=== PATIENT | female | born 1955 | race Caucasian/White ===

== ENCOUNTER 2020-04-27 12:58 | Emergency (ER) | payer MEDICARE, SELFPAY ==
[2020-04-27 13:21] VITALS: BP 154/77; PULSE 85; RESP 18; TEMP 36.8; O2SAT 96; BMI 26.6
--- NOTE | 2020-04-27 14:33 | XR_ITS ---
EXAMINATION: LEFT TIB-FIB 2 VIEWS LEFT KNEE 3 VIEWS LEFT FEMUR 5 VIEWS RIGHT KNEE 4 VIEWS CLINICAL INFORMATION: Pain status post injury COMPARISON: None TECHNIQUE: As above FINDINGS: Left tib-fib and left knee: No deformity. Moderate degenerative joint space narrowing medial femoral tibial joint compartment with marginal osteophytes. Tibial plateaus grossly intact. Trace joint effusion. Limited positioning. Left femur: No deformity. Femoral head intact. No dislocation. Right knee: Mild joint compartment narrowing medial tibial femoral joint compartment. No effusion. No fracture. XR/XR tibia fibula LT 2V IMPRESSION: No fracture as above. Chronic changes consistent with osteoarthritis.
--- NOTE | 2020-04-27 14:33 | ED.LOWEXIN ---
HPI - Extremity Injury (Lower) General Chief Complaint: Extremity Injury, Lower Stated Complaint: fall - lt leg injured Time Seen by Provider: 04/27/20 14:33 History of Present Illness HPI Narrative: Patient complains of left knee and thigh pain after a fall 3 steps off a step ladder twisting her knee, no other injury no head injury no neck injury no back injury, no loss of consciousness no numbness no weakness no tingling Related Data Previous Rx's Medication Instructions Recorded hydrocodone-acetaminophen 1 tab PO Q6H PRN 3 Days #9 tab 04/27/20 ibuprofen 600 mg PO Q6H PRN #20 tab 04/27/20 Allergies Allergy/AdvReac Type Severity Reaction Status Date / Time propoxyphene [From DARVON] Allergy Unknown UNKNOWN Unverified 01/10/20 15:52 AGE 15 BROUGHT TO HOSPITAL Sulfa (Sulfonamide Allergy Unknown HIVES Unverified 01/10/20 15:52 Antibiotics) [SULFA (SULFONAMIDE ANTIBIOTICS)] sulfur Allergy Unknown Verified 12/18/18 00:00 Review of Systems Review of Systems: Positive for left knee and thigh pain Negatives are no dizziness no weakness no headache no loss of consciousness no vision changes no neck pain no numbness no weakness no paresthesias no chest pain no shortness of breath no palpitations no abdominal pain PMFSH Past Medical History Source: nursing notes reviewed Medical History (Updated 04/27/20 @ 16:43 by ALEN Menchaca) Cholecystectomy planned High cholesterol HTN (hypertension) Hypothyroid Social History Social History Advance Directives: No Advance Directives Information Provided: Yes Physical Exam Vital Signs: Vital Signs: Last Vital Signs Temp 98.2 F 04/27/20 13:21 Pulse 85 04/27/20 13:21 Resp 18 04/27/20 13:21 BP 154/77 H 04/27/20 13:21 Pulse Ox 96 04/27/20 13:21 Body Mass Index 26.6 Patient is A&O x3, cooperative, no acute distress Head is normocephalic atraumatic Neck is supple and nontender The chest is nontender and clear to auscultation bilaterally The abdomen is soft nontender Exam of the pelvis there was no pain with pressure on the pelvic bones Extremities the hips were nontender and had a full range of motion bilaterally The left thigh had mild tenderness superior to the patella, distal femur there was no bruising or deformities or focal bony tenderness, no posterior tenderness, the left knee was not swollen but had significant lateral tenderness, no effusion no deformity, flexes to about 90 degrees extends to 180, patient can do a straight leg lift with no defects felt in quadriceps or patellar tendons, no obvious ligamentous laxity, skin intact There was very mild tenderness to the anterior proximal tibia no calf tenderness no calf swelling and neurovascular was intact distal Neuro no focal deficits Course Course Course Narrative: X-rays of lower leg knee and thigh were negative for acute fracture but did show some arthritic change As patient had difficulty ambulating she was given a knee immobilizer and told to use it only if needed and that there is risk of loss of range of motion if she overuses it She is advised to Follow with Orthopedics for further evaluation for injured knee Discharge Plan Discharge Clinical Impression: Knee sprain Qualifiers: Encounter type: initial encounter Involved ligament of knee: unspecified ligament Laterality: left Qualified Code(s): S83.92XA - Sprain of unspecified site of left knee, initial encounter Patient Disposition: Home, Self-Care Additional Instructions: X-rays did not show any broken bone You may have sprained her knee so we advise follow-up with safety compliance specialist for further evaluation Return any concerns Prescriptions: New ibuprofen 600 mg tablet 600 mg PO Q6H PRN (Reason: pain) Qty: 20 RF: 0 hydrocodone-acetaminophen 5-325 mg tablet 1 tab PO Q6H PRN (Reason: pain) 3 Days Qty: 9 RF: 0 Referrals: Omar oWlf MD [Physician] - 2 days (Left knee sprain) Stand Alone Forms: Work/School Release
--- NOTE | 2020-04-27 14:34 | XR_ITS ---
EXAMINATION: LEFT TIB-FIB 2 VIEWS LEFT KNEE 3 VIEWS LEFT FEMUR 5 VIEWS RIGHT KNEE 4 VIEWS CLINICAL INFORMATION: Pain status post injury COMPARISON: None TECHNIQUE: As above FINDINGS: Left tib-fib and left knee: No deformity. Moderate degenerative joint space narrowing medial femoral tibial joint compartment with marginal osteophytes. Tibial plateaus grossly intact. Trace joint effusion. Limited positioning. Left femur: No deformity. Femoral head intact. No dislocation. Right knee: Mild joint compartment narrowing medial tibial femoral joint compartment. No effusion. No fracture. XR/XR knee RT 4V IMPRESSION: No fracture as above. Chronic changes consistent with osteoarthritis.
--- NOTE | 2020-04-27 14:34 | XR_ITS ---
EXAMINATION: LEFT TIB-FIB 2 VIEWS LEFT KNEE 3 VIEWS LEFT FEMUR 5 VIEWS RIGHT KNEE 4 VIEWS CLINICAL INFORMATION: Pain status post injury COMPARISON: None TECHNIQUE: As above FINDINGS: Left tib-fib and left knee: No deformity. Moderate degenerative joint space narrowing medial femoral tibial joint compartment with marginal osteophytes. Tibial plateaus grossly intact. Trace joint effusion. Limited positioning. Left femur: No deformity. Femoral head intact. No dislocation. Right knee: Mild joint compartment narrowing medial tibial femoral joint compartment. No effusion. No fracture. XR/XR knee LT 4V IMPRESSION: No fracture as above. Chronic changes consistent with osteoarthritis.
--- NOTE | 2020-04-27 14:34 | XR_ITS ---
EXAMINATION: LEFT TIB-FIB 2 VIEWS LEFT KNEE 3 VIEWS LEFT FEMUR 5 VIEWS RIGHT KNEE 4 VIEWS CLINICAL INFORMATION: Pain status post injury COMPARISON: None TECHNIQUE: As above FINDINGS: Left tib-fib and left knee: No deformity. Moderate degenerative joint space narrowing medial femoral tibial joint compartment with marginal osteophytes. Tibial plateaus grossly intact. Trace joint effusion. Limited positioning. Left femur: No deformity. Femoral head intact. No dislocation. Right knee: Mild joint compartment narrowing medial tibial femoral joint compartment. No effusion. No fracture. XR/XR femur LT 2V IMPRESSION: No fracture as above. Chronic changes consistent with osteoarthritis.
== END 2020-04-27 17:29 | disposition home or self-care (01) ==
PROVIDERS: Emergency Provider Emergency Medicine; PCP Internal Medicine
DX: S83.92XA Sprain of unspecified site of left knee, initial encounter (principal); M25.562 Pain in left knee; W10.9XXA Fall (on) (from) unspecified stairs and steps, initial encounter; Y93.9 Activity, unspecified; Y92.009 Unspecified place in unspecified non-institutional (private) residence as the place of occurrence of the external cause; Y99.9 Unspecified external cause status
CPT/HCPCS: 73552; 73564; 73590; 99283; 99284

== ENCOUNTER → 2020-06-02 13:53 | Outpatient (BNVA) | payer OTHER, MEDICARE, SELFPAY | PROVIDERS: Visit Provider Physician Assistant | DX: Z13.89 Encounter for screening for other disorder (principal) | CPT/HCPCS: 99202 ==

== ENCOUNTER 2020-06-11 07:00 | Outpatient (RCR) | payer OTHER, MEDICARE, SELFPAY | END 2020-06-11 08:28 | disposition other institution (70) | LOC: HO.PTWFD 07:00 | PROVIDERS: Visit Provider Internal Medicine | DX: S83.92XD Sprain of unspecified site of left knee, subsequent encounter (principal) | CPT/HCPCS: 97110; 97162; 97530 ==

== ENCOUNTER 2020-08-05 07:00 | Outpatient (RCR) | payer MEDICARE, SELFPAY | END 2020-08-28 08:42 | disposition other institution (70) | LOC: HO.PTWFD 07:00 | PROVIDERS: Visit Provider Internal Medicine | DX: M25.561 Pain in right knee (principal) | CPT/HCPCS: 97110; 97112; 97161; 97535 ==

== ENCOUNTER 2021-11-18 19:11 | Emergency (ER) | payer MEDICARE, SELFPAY ==
--- NOTE | ~2021-11-18 | CT_ITS ---
EXAMINATION: CT ANGIOGRAM OF THE CHEST WITH AND WITHOUT CONTRAST (CT PULMONARY ANGIOGRAM FOR PE) CLINICAL INFORMATION: Reason for Exam mid chest pain for sob COMPARISON: MRI abdomen dated 03/01/2014 TECHNIQUE: Prior to contrast administration, noncontrast localization images were obtained. Subsequently, multidetector volumetric imaging was performed from the thoracic inlet to below the diaphragms following the administration of 70 mL Omnipaque 350 intravenous contrast. No contrast reaction reported Sagittal, coronal, and MIP oblique sagittal reformatted images were obtained on the CT workstation, uploaded to PACS, and reviewed. This CT examination was performed using dose optimization techniques as appropriate, variously including the following: *Automated exposure control *Adjustment of mA and/or kV according to patient size (this includes techniques or standardized protocols for targeted exams where dose is matched to indication/reason for exam; i.e. extremities or head) *Use of iterative reconstruction technique Total exam dose-length product 249 mGy-cm FINDINGS: QUALITY OF STUDY/CONTRAST BOLUS: Satisfactory. PULMONARY ARTERIES: No central or segmental pulmonary emboli. THORACIC AORTA: No aneurysm or dissection. LUNG: No focal consolidation or evidence of pneumonitis. There are a few scattered calcified granulomata which are benign and do not necessitate follow-up per Fleischner Society guidelines. No concerning pulmonary nodules. PLEURA: No pleural effusion or pneumothorax. MEDIASTINUM: Normal heart size. No pericardial effusion. No hilar or mediastinal lymphadenopathy. No evidence of septal bowing or right heart strain. CHEST WALL/AXILLA: No axillary or internal mammary lymphadenopathy. OSSEOUS STRUCTURES: No acute or suspicious osseous abnormality. UPPER ABDOMEN: Moderate hiatal hernia. Stable low-density 2.4 x 1.4 cm nodule in left adrenal gland compatible with a benign lipid rich adenoma as confirmed on the previous MRI CT/CT angio chest PE protocol IMPRESSION: * No pulmonary embolism. * No acute pulmonary parenchymal abnormalities. * Moderate hiatal hernia. * Stable benign left adrenal adenoma. Current guidelines from the [place] [employer] and the [place] [employer] recommend an initial biochemical evaluation of all adrenal incidentalomas to exclude subclinical Angel/s syndrome and hyperaldosteronism. VTE: negative
--- NOTE | ~2021-11-18 | XR_ITS ---
EXAMINATION: XR CHEST CLINICAL INFORMATION: Chest pain COMPARISON: None TECHNIQUE: Frontal view of the chest was obtained. FINDINGS: No significant abnormality is noted involving the heart, lungs, mediastinum, bony thorax or soft tissues. A small hiatal hernia is present. XR/XR chest 1V IMPRESSION: No acute intrathoracic disease. A hiatal hernia is present.
--- NOTE | 2021-11-18 19:31 | ECG_ITS ---
Test Reason : CHEST PAIN Blood Pressure : / mmHG Vent. Rate : 073 BPM Atrial Rate : 073 BPM P-R Int : 154 ms QRS Dur : 082 ms QT Int : 386 ms P-R-T Axes : 018 028 029 degrees QTc Int : 425 ms Normal sinus rhythm Normal ECG No previous ECGs available Referred By: Generic ED Physician Electronically Signed By:MARICHUY MENDES
[2021-11-18 19:51] LABS: MANUAL DIFF FLAG NO
[2021-11-18 19:52] LABS: Basophils Percent Auto 0.4 % (0-2); Eosinophils Absolute Auto 0.2 X10*3/uL (0.0-0.4); Hematocrit 41.9 % (37.0-47.0); Hemoglobin 14.6 g/dl (12.0-16.0); Imm Gran Abs Auto 0.02 X10*3/uL (0.00-0.03); Imm Gran Pct Auto 0.3 % (0.0-0.4); Lymphocytes Percent Auto 25.6 % (20-40); Mean Corpuscular HGB Conc 34.8 g/dl (31.0-35.0); Mean Corpuscular Hemoglobin 30.4 pg (27.0-33.0); Mean Corpuscular Volume 87.3 fL (80.0-98.0); Mean Platelet Volume 9.2 fL (9.4-12.3); Monocytes Absolute Auto 0.9 X10*3/uL (0.1-1.2); Monocytes Percent Auto 11.4 % (2-11); Neutrophils Absolute Auto 4.6 x10*3/uL (2.0-8.3); Neutrophils Percent Auto 60.3 % (45-73); Platelet Count 239 X10*3/uL (160-400); White Blood Count 7.6 X10*3/uL (4.8-10.8)
[2021-11-18 20:08] LABS: Anion Gap 11 (12-20); Blood Urea Nitrogen 19 mg/dL (9-16); Calcium 9.1 mg/dL (8.4-10.2); Carbon Dioxide 25 mmol/L (22-29); Chloride 107 mmol/L (96-108); Estimated Glomerular Filt Rate > 60; Glucose Random 98 mg/dL (60-115); Potassium 4.2 mmol/L (3.3-5.1); Sodium 139 mmol/L (135-145)
[2021-11-18 20:13] LABS: Troponin-I High Sensitivity 5.2 ng/L (<3.5-17.0)
[2021-11-18 20:15] VITALS: BP 149/71; PULSE 69; RESP 18; TEMP 36.7; O2SAT 97; BMI 26.4
[2021-11-18 22:37] VITALS: BP 135/86; PULSE 71; RESP 18; TEMP 36.3; O2SAT 96
--- NOTE | 2021-11-18 22:45 | ED_ITS ---
HPI - Chest Pain General Chief Complaint: Chest Pain Stated Complaint: Heartburn/Chest Pressure/Sob Time Seen by Provider: 11/18/21 22:45 Source: patient Mode of arrival: ambulatory Limitations: no limitations History of Present Illness HPI narrative: Patient with significant cardiac history complaining of heartburn midsternal chest pain hurts when she drinks coffee no other history of any ulcer in the past feels slight short of breath patient has been taking Maalox and famotidine without much response Related Data Previous Rx's Medication Instructions Recorded hydrocodone 5 mg-acetaminophen 325 1 tab PO Q6H PRN pain 3 days #9 04/27/20 mg tablet tabs ibuprofen 600 mg tablet 600 mg PO Q6H PRN pain #20 tabs 04/27/20 pantoprazole 40 mg tablet,delayed 40 mg PO DAILY #30 tabs 11/19/21 release (Protonix) sucralfate 1 gram tablet 1 g PO TID #90 tabs 11/19/21 Allergies Allergy/AdvReac Type Severity Reaction Status Date / Time propoxyphene [From DARVON] Allergy Intermediate UNKNOWN Verified 11/18/21 20:14 AGE 15 BROUGHT TO HOSPITAL Sulfa (Sulfonamide Allergy Intermediate HIVES Verified 11/18/21 20:14 Antibiotics) [SULFA (SULFONAMIDE ANTIBIOTICS)] sulfur Allergy Intermediate Hives Verified 11/18/21 20:14 Review of Systems Review of Systems: Yes all other systems are reviewed and are negative [facility] Past Medical History Medical History Cholecystectomy planned High cholesterol HTN (hypertension) Hypothyroid Social History Social History Alcohol intake: never Advance Directives: No Advance Directives Information Provided: No Physical Exam Vital Signs: Vital Signs: Last Vital Signs Temp 98.7 F 11/19/21 00:00 Pulse 67 11/19/21 00:00 Resp 17 11/19/21 00:00 BP 118/61 11/19/21 00:00 Pulse Ox 96 11/19/21 00:00 O2 Del Method 11/19/21 00:00 BMI result Body Mass Index 26.4 Appearance: Alert. Oriented X3. No acute distress. Eyes: No pallor or icterus ENT: Pharynx normal. Oral Mucosa moist Neck: Normal inspection. Neck supple. CVS: Normal heart rate and rhythm. Pulses normal. Respiratory: No respiratory distress. Equal air entry bilateral, no wheezing/rales/rhonchi Abdomen: Soft and nontender. Bowel sounds are present, no mass palpable, no CVA tenderness Skin: Skin warm and dry. Normal skin color. Normal skin turgor. Extremities: No lower extremity edema. No calf tenderness Neuro: Oriented X 3. No motor deficit. MDM - Chest Pain MDM Narrative Medical decision making narrative: Patient with epigastric pain x-ray and CTA chest showed moderate size hiatal hernia no PE will discharge patient home on PPI advised to have follow-up with electronics tester Differential Diagnosis Differential diagnosis: Likely atypical chest pain, st elevation myocardial infarction and biliary colic Differential diagnosis: Aortic dissection, PE, gastritis Lab Data Attestation: I reviewed the patient's lab results. Result diagrams: 11/18/21 19:46 11/18/21 19:46 Labs: Lab Results 11/18/21 11/18/21 11/18/21 Range/Units 19:46 19:46 19:46 WBC 7.6 (4.8-10.8) X10*3/uL RBC 4.80 (4.20-5.50) X10*6/uL Hgb 14.6 (12.0-16.0) g/dl Hct 41.9 (37.0-47.0) % MCV 87.3 (80.0-98.0) fL MCH 30.4 (27.0-33.0) pg MCHC 34.8 (31.0-35.0) g/dl RDW 12.0 (11.0-16.0) % Plt Count 239 (160-400) X10*3/uL MPV 9.2 L (9.4-12.3) fL Immature Gran % (Auto) 0.3 (0.0-0.4) % Neut % (Auto) 60.3 (45-73) % Lymph % (Auto) 25.6 (20-40) % [place] % (Auto) 11.4 H (2-11) % Eos % (Auto) 2.0 (0-4) % Baso % (Auto) 0.4 (0-2) % Lymph # (Auto) 2.0 (1.2-4.9) X10*3/uL [place] # (Auto) 0.9 (0.1-1.2) X10*3/uL Eos # (Auto) 0.2 (0.0-0.4) X10*3/uL Baso # (Auto) 0.0 (0.0-0.2) X10*3/uL Abs Immat Gran (auto) 0.02 (0.00-0.03) X10*3/uL Absolute Neuts (auto) 4.6 (2.0-8.3) x10*3/uL Absolute Nucleated RBC 0.000 (0.0-0.012) X10*3/uL Nucleated RBC % (auto) 0.0 (0.0-0.2) /100WBC D-Dimer High Sensitivty NG/ML Sodium 139 (135-145) mmol/L Potassium 4.2 (3.3-5.1) mmol/L Chloride 107 (96-108) mmol/L Carbon Dioxide 25 (22-29) mmol/L Anion Gap 11 L (12-20) BUN 19 H (9-16) mg/dL Creatinine 0.75 (0.5-1.4) mg/dL Estim Creat Clear Calc TNP Estimated GFR > 60 Random Glucose 98 (60-115) mg/dL Calcium 9.1 (8.4-10.2) mg/dL Troponin I High Sens 5.2 (<3.5-17.0) ng/L 11/18/21 11/18/21 Range/Units 23:56 23:56 WBC (4.8-10.8) X10*3/uL RBC (4.20-5.50) X10*6/uL Hgb (12.0-16.0) g/dl Hct (37.0-47.0) % MCV (80.0-98.0) fL MCH (27.0-33.0) pg MCHC (31.0-35.0) g/dl RDW (11.0-16.0) % Plt Count (160-400) X10*3/uL MPV (9.4-12.3) fL Immature Gran % (Auto) (0.0-0.4) % Neut % (Auto) (45-73) % Lymph % (Auto) (20-40) % [place] % (Auto) (2-11) % Eos % (Auto) (0-4) % Baso % (Auto) (0-2) % Lymph # (Auto) (1.2-4.9) X10*3/uL [place] # (Auto) (0.1-1.2) X10*3/uL Eos # (Auto) (0.0-0.4) X10*3/uL Baso # (Auto) (0.0-0.2) X10*3/uL Abs Immat Gran (auto) (0.00-0.03) X10*3/uL Absolute Neuts (auto) (2.0-8.3) x10*3/uL Absolute Nucleated RBC (0.0-0.012) X10*3/uL Nucleated RBC % (auto) (0.0-0.2) /100WBC D-Dimer High Sensitivty < 150 NG/ML Sodium (135-145) mmol/L Potassium (3.3-5.1) mmol/L Chloride (96-108) mmol/L Carbon Dioxide (22-29) mmol/L Anion Gap (12-20) BUN (9-16) mg/dL Creatinine (0.5-1.4) mg/dL Estim Creat Clear Calc Estimated GFR Random Glucose (60-115) mg/dL Calcium (8.4-10.2) mg/dL Troponin I High Sens < 3.5 (<3.5-17.0) ng/L ECG Data ECG #1: Attestation: I personally reviewed and interpreted this ECG as follows: Interpretation: Normal sinus rhythm with heart rate 73 beats per minute and normal intervals normal axis no acute ST T wave changes no ischemia impression normal EKG Discharge Plan Discharge Clinical Impression: Esophageal hiatal hernia Patient Disposition: Home, Self-Care Instructions: Hiatal Hernia (ED) Additional Instructions: Avoid spicy and greasy food Take medication as prescribed stop taking ibuprofen Care as advised Follow-up with electronics tester Prescriptions: New pantoprazole [Protonix] 40 mg tablet,delayed release (DR/EC) 40 mg PO DAILY Qty: 30 3RF sucralfate 1 gram tablet 1 g PO TID Qty: 90 3RF No Action ibuprofen 600 mg tablet 600 mg PO Q6H PRN (Reason: pain) Qty: 20 0RF hydrocodone-acetaminophen 5-325 mg tablet 1 tab PO Q6H PRN (Reason: pain) 3 Days Qty: 9 0RF
--- NOTE | 2021-11-18 22:58 | PC.NURSE ---
IV access placed
[2021-11-18 23:00] VITALS: BP 153/105; PULSE 69; RESP 14; O2SAT 98
[2021-11-18] MEDS: iohexoL 350 MG/ML 100 ML INFUS..BTL IV (23:22)
[2021-11-19] VITALS: BP 118/61; PULSE 67; RESP 17; TEMP 37.1; O2SAT 96
[2021-11-19 00:22] LABS: D Dimer High Sensitivity < 150 NG/ML
[2021-11-19 00:29] LABS: Troponin-I High Sensitivity < 3.5 ng/L (<3.5-17.0)
[2021-11-19] MEDS: Famotidine/PF 20 MG/2 ML VIAL IVPUSH (01:06)
[2021-11-19] MEDS: Magnesium Hydrox/Alum Hydrox 30 ML ORAL.SUSP PO (01:06)
[2021-11-19 01:16] VITALS: BP 119/58; PULSE 73; RESP 14; O2SAT 98
== END 2021-11-19 01:27 | disposition home or self-care (01) ==
PROVIDERS: Emergency Provider Internal Medicine; PCP Internal Medicine
DX: K44.9 Diaphragmatic hernia without obstruction or gangrene (principal); I10 Essential (primary) hypertension; E78.5 Hyperlipidemia, unspecified; Z79.899 Other long term (current) drug therapy
CPT/HCPCS: 36415; 71045; 71275; 80048; 84484; 85025; 85379; 93005; 96374; 99284; Q9967

== ENCOUNTER → 2021-12-01 13:39 | Outpatient (BNVA) | payer MEDICARE, SELFPAY | PROVIDERS: PCP Internal Medicine; Visit Provider Physician Assistant | DX: K44.9 Diaphragmatic hernia without obstruction or gangrene (principal); K21.9 Gastro-esophageal reflux disease without esophagitis | CPT/HCPCS: 99202; 99212 ==

== ENCOUNTER → 2022-04-27 10:14 | Outpatient (BNVA) | payer MEDICARE, SELFPAY | PROVIDERS: PCP Internal Medicine; Visit Provider Physician Assistant | DX: R13.10 Dysphagia, unspecified (principal); R63.4 Abnormal weight loss; I10 Essential (primary) hypertension; E03.9 Hypothyroidism, unspecified; E78.00 Pure hypercholesterolemia, unspecified | CPT/HCPCS: Q3014 ==